=== PATIENT | female | born 1990 | race Hispanic/Latino ===

== ENCOUNTER 2019-05-11 09:43 | Emergency (ER) | payer MEDICAID, SELFPAY ==
[2019-05-11 10:11] LABS: #Eosinphils 0.1 thou/uL (0.0-0.7); #Lymphocytes 1.4 thou/uL (1.20-3.40); #Monocytes 0.3 thou/uL (0.11-0.59); #Neutrophils 3.2 thou/uL (1.40-6.50); %Basophils 0.1 % (0.0-1.0); %Eosinophils 1.6 % (0.0-10.0); %Lymphocytes 27.5 % (21.0-51.0); %Monocytes 6.8 % (0.0-10.0); %Neutrophils 63.9 % (42.0-75.0); Hemoglobin 14.1 g/dL (12.0-16.0); Mean Corpuscular HGB CONC 33.6 g/dL (32.0-36.0); Mean Corpuscular Hemoglobin 30.2 pg (27.0-31.0); Mean Corpuscular Volume 89.6 fL (78.0-98.0); Platelet Count 257 thou/uL (130-400); RBC Distribution Width 11.5 % (11.5-14.5); Red Blood Cell (RBC) Count 4.66 mill/uL (4.20-5.40)
[2019-05-11 10:31] LABS: ALT (SGPT) 33 U/L (8-55); AST (SGOT) 37 U/L (5-34); Albumin 4.2 g/dL (3.5-5.0); Alkaline Phosphatase 98 U/L (40-110); Anion Gap 11 mmol/L (10-20); BUN (Urea Nitrogen) 10 mg/dL (7.0-18.7); Bilirubin, Total 0.8 mg/dL (0.2-1.2); Calc. Creatinine Clearance 0 mL/min (70-130); Calcium 8.9 mg/dL (7.8-10.44); Carbon Dioxide 25 mmol/L (22-29); Chloride 103 mmol/L (98-107); Estimated GFR-MDRD 89; Glucose 93 mg/dL (70-105); Lipase 40 U/L (8-78); Potassium 3.2 mmol/L (3.5-5.1); Protein, Total 7.2 g/dL (6.0-8.3); Sodium 136 mmol/L (136-145)
[2019-05-11 10:38] LABS: Bilirubin Negative (Negative); Blood, Urine 2+ (Negative); Clarity Clear (Clear); Glucose, Urine (Dipstick) Normal (Negative); Leukocyte Negative Leu/uL (Negative); Nitrite Negative (Negative); Protein, Urine (Dipstick) Negative (Neg-Trace); Squamous Epithelial 0-3 HPF (0-3); Urobilinogen 6 mg/dL (Less than 2); WBC/HPF 0-3 HPF (0-3)
[2019-05-11 10:52] LABS: Bacteria/HPF None Seen HPF (None Seen); Mucous/LPF Rare LPF (<2+)
[2019-05-11 10:57] LABS: BHCG - Serum Negative (NEGATIVE); Pregs Control Background? CLEAR/WHITE (CLR/WHITE); Pregs Control Bar Appear? YES (CONTROL BAR)
[2019-05-11] MEDS ORDERED: Morphine 4 MG/ML VIAL ONE (11:30)
[2019-05-11] MEDS ORDERED: Famotidine/PF 20 mg/2ml Vial ONE (11:30)
[2019-05-11 11:52] LABS: Pregnancy Test - Urine (BHCG) Negative (Negative); Pregu Control Background? CLEAR/WHITE (CLR/WHITE); Pregu Control Bar Appear? YES (CONTROL BAR); Specific Gravity 1.021 (1.002-1.036)
--- NOTE | 2019-05-11 13:11 | CT ---
CT Appendix Protocol History: Abdominal pain Comparison: None available Findings: The lung bases are clear. No pericardial effusion. Mild heterogeneous appearance of the liver. The hepatic veins are patent. Portal veins appear to be p atent. Prior cholecystectomy. Mild reservoir effect common bile duct. No hydronephrosis. Spleen is unremarkable as well as the pancreas. No hydronephrosis. Kidneys are unremarkable. No acute osseous abnormality. Celiac trunk and superior mesenteric arteries are patent. No retroperitoneal periaortic adenopathy. No dilated loops of large or small bowel. The appendix is visualized and is normal. Normal wall thickening and low-grade inflammatory stranding around the cecum with mild submucosal fat infiltration. Mild narrowing of the terminal ileum also is some mild wall thickening. Impression: 1. Normal appendix. 2. No acute inflammatory process within the abdomen or pelvis. 3. Mild wall thickening and submucosal fat infiltration of the cecal apex and terminal ileum can be s een with chronic inflammatory bowel disease such as Crohn's. Nonemergent workup recommended.
[2019-05-11] MEDS ORDERED: Ondansetron PF 4 MG/2 ML Vial ONE (14:23)
[2019-05-11] MEDS ORDERED: predniSONE 20 MG TAB ONE (14:23)
[2019-05-11] MEDS ORDERED: HYDROcodone/Acetaminophen 5/325 mg Tablet ONE (14:23)
== END 2019-05-11 15:23 | disposition home or self-care (01) ==
LOC: ERS 09:43
DX: R10.31 Right lower quadrant pain (principal); R10.814 Left lower quadrant abdominal tenderness
CPT/HCPCS: 36415; 74177; 80053; 81003; 81015; 81025; 83690; 84703; 85025; 96361; 96374; 96375; C1776; J2270; J2405; J7512; S0028